=== PATIENT | female | born 1950 | race Caucasian/White ===

== ENCOUNTER → 2016-05-13 | Outpatient (CLI) | payer OTHER ==
--- NOTE | 2016-05-14 19:22 | Diagnostic Imaging Report ---
INDICATION: Digital screening mammography bilateral with CAD The current study was also evaluated with a Computer Aided Detection (CAD) system. Comparison is made to previous studies of 05/04/2014 through 04/29/2013. There is moderate breast parenchymal density, bilaterally. No new dominant mass or suspicious calcification is identified. Overall, there has been no significant adverse change. IMPRESSION: Benign mammograms. Continued physical examination and annual mammographic followup are recommended. ACR BI-RADS Category 2: Benign findings. Result letter will be mailed to the patient. Note: At least 10% of breast cancer is not imaged by mammography. Dictated by: Dictated on workstation # [id number]
== END ==
LOC: RAD 09:57
PROVIDERS: ATTEND Family Medicine
DX: Z12.31 Encounter for screening mammogram for malignant neoplasm of breast (principal)